=== PATIENT | female | born 1995 | race Caucasian/White ===

== ENCOUNTER 2022-09-10 12:11 | Emergency (ER) | payer OTHER ==
[~2022-09-10] VITALS: Ht 167.6 cm; Wt 82.6 kg
[~2022-09-10 12:11] MED LIST: CIMETIDINE; MIRILAX; PHILLIPS COLON HEALTH
[2022-09-10 12:17] VITALS: BP 125/82
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
--- NOTE | 2022-09-10 13:17 | NUR ---
MD ALVARADO AT BEDSIDE FOR EVALUATION
[2022-09-10] MEDS ORDERED: IBUPROFEN 400 MG TAB PO ONE (13:25)
--- NOTE | 2022-09-10 13:29 | NUR ---
XR AT BEDSIDE
--- NOTE | 2022-09-10 14:06 | NUR ---
PT'S SUPERFICIAL ABRASION TO L ANTERIOR THIGH IRRIGATED WITH NORMAL SALINE AND BETADINE.
[2022-09-10] MEDS ORDERED: NAPR-1704 PO (14:27)
--- NOTE | 2022-09-10 14:50 | NUR ---
PER ER MID LEVEL, PRE FABRICATED VOLAR SPLINT APPLIED TO L WRIST. + CMS AFTER APPLICATION.
[2022-09-10 14:59] VITALS: BP 121/82
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
--- NOTE | 2022-09-10 15:00 | NUR ---
Chart checked and completed. The patient's care was reviewed and supervised by Tracy Mcmahon RN.
== END 2022-09-10 14:59 | disposition home or self-care (01) ==
LOC: MED 12:11
DX: S93.402A Sprain of unspecified ligament of left ankle, initial encounter (principal); S63.502A Unspecified sprain of left wrist, initial encounter; S70.12XA Contusion of left thigh, initial encounter; S16.1XXA Strain of muscle, fascia and tendon at neck level, initial encounter; Z79.899 Other long term (current) drug therapy; V89.2XXA Person injured in unspecified motor-vehicle accident, traffic, initial encounter; Y93.89 Activity, other specified; Y92.89 Other specified places as the place of occurrence of the external cause; Y99.8 Other external cause status
CPT/HCPCS: 73110; 73610; 99284